=== PATIENT | male | born 1965 | race Hispanic/Latino ===

== ENCOUNTER 2020-02-17 19:10 | Emergency (ER) | payer SELFPAY ==
[~2020-02-17] VITALS: Ht 182.9 cm; Wt 99.8 kg
[2020-02-17] MEDS ORDERED: DEXAMETHASONE SOD PHOS 10 MG/1 ML VIAL IV STA (20:02)
[2020-02-17] MEDS ORDERED: AZITHROMYCIN 500MG/NS 250 ML 250 ML IV STA (20:02)
[2020-02-17] MEDS ORDERED: ACETAMINOPHEN 325 MG TAB PO STA (20:02)
--- NOTE | 2020-02-17 20:02 | Emergency Department Note ---
History of Present Illnes History of Present Illness Chief Complaint: COVID PUI History of Present Illness This is a 54 year old male . Historian: Patient Arrival Mode: Car Past Medical/Family History Physician Review I have reviewed the patient's past medical and family history. Any updates have been documented here. Physical Exam Related Data Allergies: Coded Allergies: No Known Allergies (Unverified , 02/17/20) Physical Exam CONSTITUTIONAL Constitutional: Present well-developed, Present well-nourished, Present obese, Present ill appearing HENT HENT: Present normocephalic, Present atraumatic, Present oropharynx clear/moist, Present nose normal HENT L/R: Present left ext ear normal, Present right ext ear normal EYES Eyes: Reports PERRL, Reports conjunctivae normal NECK Neck: Present ROM normal PULMONARY Pulmonary: Present effort normal, Present breath sounds normal CARDIOVASCULAR Cardiovascular: Present regular rhythm, Present heart sounds normal, Present capillary refill normal, Present normal rate GASTROINTESTINAL Abdominal: Present soft, Present nontender, Present bowel sounds normal GENITOURINARY Genitourinary: Present exam deferred SKIN Skin: Present warm, Present dry MUSCULOSKELETAL Musculoskeletal: Present ROM normal NEUROLOGICAL Neurological: Present alert, Present oriented x 3, Present no gross motor or sensory deficits PSYCHOLOGICAL Psychological: Present mood/affect normal, Present judgement normal Procedures 12 Lead ECG Interpretation ECG Interpretation : ECG: ECG 1 Electrical Tech/Project Manager: Interpreted by ED physician Date: Feb 17, 2020 Time: 21:25 Prior ECG tracings: reviewed Rhythm: sinus rhythm Rate: normal BPM: 87 QRS axis: normal ST segments normal: Yes T waves normal: Yes Clinical Impression: normal ECG Assessment & Plan Medical Decision Making MDM Diff Dx : COVID URI, sepsis, PNA, PE Assessment & Plan Final Impression: (1) Hypoxia (2) Upper respiratory tract infection due to COVID-19 virus EVLA MELGOZA DO Feb 17, 2020 20:02
[2020-02-17 20:48] LABS: BASOPHILS % 0.1 % (0.0-1.0); EOSINOPHILS # (AUTO) 0.2 (0.0-0.4); EOSINOPHILS % 2.2 % (0.0-6.0); HEMATOCRIT 50.2 % (38.2-49.6); HEMOGLOBIN 17.3 g/dL (14.0-18.0); LYMPHOCYTES # (AUTO) 1.8 (1.0-3.2); LYMPHOCYTES % 23.6 % (18.0-39.1); MEAN CORPUSCULAR HEMOGLOBIN 30.6 pg (28-32); MEAN CORPUSCULAR HGB CONC 34.5 g/dL (31-35); MEAN CORPUSCULAR VOLUME 88.7 fL (81-99); MONOCYTES # (AUTO) 0.9 (0.2-0.8); NEUTROPHILS # (AUTO) 4.8 (2.1-6.9); NEUTROPHILS % 62.2 % (38.7-80.0); PLATELET COUNT 191 x10e3/uL (140-360); RED BLOOD COUNT 5.66 x10e6/uL (4.3-5.7); RED CELL DISTRIBUTION WIDTH 12.5 % (11.7-14.4)
[2020-02-17 21:04] LABS: ALANINE AMINOTRANSFERASE 48 IU/L (0-55); ALBUMIN 3.3 g/dL (3.5-5.0); ALBUMIN/GLOBULIN RATIO 0.7 (0.8-2.0); ALKALINE PHOSPHATASE 83 IU/L (40-150); ANION GAP 14.8 mmol/L (8-16); BLOOD UREA NITROGEN 12 mg/dL (7-26); BUN/CREATININE RATIO 13 (6-25); CALCIUM 8.5 mg/dL (8.4-10.2); CARBON DIOXIDE 25 mmol/L (22-29); CHLORIDE 94 mmol/L (98-107); CREATININE, SERUM 0.95 mg/dL (0.72-1.25); EST GLOMERULAR FILTRATION RATE > 60 ML/MIN (60-); GLUCOSE 112 mg/dL (74-118); POTASSIUM 3.8 mmol/L (3.5-5.1); SODIUM 130 mmol/L (136-145)
--- NOTE | 2020-02-17 21:55 | Diagnostic Imaging Report ---
EXAMINATION: CHEST SINGLE (PORTABLE) INDICATION: ^Y ^COVID hypoxia ^[id number] ^[id number] COMPARISON: None FINDINGS: Heart is nonenlarged. Scattered patchy and hazy lung opacities with peripheral distribution. No pleural effusion. No pneumothorax. IMPRESSION: Findings compatible with multifocal pneumonia/viral pneumonia. Signed by: Dre Guthrie MD on 02/17/2020 9:51 PM
--- NOTE | 2020-02-17 22:21 | NUR ---
[facility] called at this time
[2020-02-17 22:29] VITALS: BP 121/86
== END 2020-02-17 23:16 | disposition other institution (70) ==
LOC: ER 20:02
DX: U07.1 COVID-19 (principal); R09.02 Hypoxemia
CPT/HCPCS: 36415; 71045; 80053; 85025; 93005; 99284; J0456; J1100; U0002